=== PATIENT | male | born 1990 | race American Indian/Alaskan Native ===

== ENCOUNTER 2017-03-25 22:08 | Inpatient (IN) | payer MEDICAID ==
--- NOTE | 2017-03-25 22:35 | C.PDOC ---
History Of Present Illness <Pedro Goldstein - Last Filed: 03/25/17 23:18> <Colten Doe - Last Filed: 03/26/17 01:51> 26M c/o depression and suicidal thoughts that began earlier today. he says he was discharged from an inpatient psych hospital this morning and was feeling ok upon discharge. he then began to feel worse later in the day and started feeling suicidal again, he days, without any specific plan. he attempted to OD once in the past with heroin. currently he says he is in treatment and not using drugs or alcohol. (Pedro Goldstein) <Pedro Goldstein - Last Filed: 03/25/17 23:18> <Colten Doe - Last Filed: 03/26/17 01:51> Time Seen by Provider: 03/25/17 22:35 Chief Complaint (Nursing): Psychiatric Evaluation Past Medical History - Medical History PMH: Depression Family History: States: Other Other Family History: nc - Social History Hx Alcohol Use: No Hx Substance Use: Yes (heroine,last use 2 months ago) - Immunization History Hx Tetanus Toxoid Vaccination: No Hx Influenza Vaccination: No Hx Pneumococcal Vaccination: No <Pedro Goldstein - Last Filed: 03/25/17 23:18> Vital Signs: Last Vital Signs Temp 97.9 F 03/25/17 22:20 Pulse 82 03/25/17 22:20 Resp 20 03/25/17 22:20 BP 127/67 03/25/17 22:20 Pulse Ox 98 03/25/17 23:21 Review Of Systems Constitutional: Negative for: Fever Cardiovascular: Negative for: Chest Pain Respiratory: Negative for: Cough, Shortness of Breath Gastrointestinal: Negative for: Nausea, Vomiting Neurological: Negative for: Headache Psych: Positive for: Depression, Suicidal ideation <Pedro Goldstein - Last Filed: 03/25/17 23:18> Physical Exam - Physical Exam Appears: Well, Non-toxic, No Acute Distress Skin: Warm, Dry Head: Atraumatic Eye(s): bilateral: PERRL Nose: No Epistaxis Lips: No Swelling Cardiovascular: Rhythm Regular Respiratory: No Decreased Breath Sounds, No Accessory Muscle Use Gastrointestinal/Abdominal: Soft, No Tenderness Neurological/Psych: Oriented x3, Other (no focla deficits) <Pedro Goldstein P - Last Filed: 03/25/17 23:18> ED Course And Treatment - Laboratory Results Result Diagrams: 03/25/17 22:48 03/25/17 22:48 O2 Sat by Pulse Oximetry: 98 <Pedro Goldstein P - Last Filed: 03/25/17 23:18> - Laboratory Results Result Diagrams: 03/25/17 22:48 03/25/17 22:48 Progress Note: signed over @ 0100- pt pending Crisis eval. 0150: d/w Crisis, ok to Psych <Colten Doe E - Last Filed: 03/26/17 01:51> Disposition <Pedro Goldstein P - Last Filed: 03/25/17 23:18> Doctor Will See Patient In The: Hospital Counseled Patient/Family Regarding: Studies Performed, Diagnosis - Disposition Disposition Time: 01:51 <Colten Doe E - Last Filed: 03/26/17 01:51> - Disposition Disposition: HOSPITALIZED Condition: GOOD Forms: [employer] ([place]) - Clinical Impression Clinical Impression: Opiate abuse, continuous, Alcohol abuse, Depressive disorder
[2017-03-25 22:53] LABS: BASO # 0.2 K/uL (0.0-0.2); BASO % 2.8 % (0.0-2.0); EOS # 0.2 K/uL (0.0-0.7); EOS % 3.4 % (0.0-4.0); HEMATOCRIT 46.1 % (35.0-51.0); LYMPH # 1.2 K/uL (1.0-4.3); LYMPH % 22.1 % (20.0-40.0); MEAN CELL VOLUME 92.3 fL (80.0-94.0); MEAN CORPUSCULAR HEMOGLOBIN 31.2 pg (27.0-31.0); MEAN CORPUSCULAR HGB CONC 33.7 g/dL (33.0-37.0); MEAN PLATELET VOLUME 8.3 fL (7.2-11.7); MONO # 0.7 K/uL (0.0-0.8); MONO % 13.4 % (0.0-10.0); NRBC % 0.1 % (0.0-2.0); RED CELL DISTRIBUTION WIDTH 14.8 % (11.5-14.5); WHITE BLOOD COUNT 5.4 K/uL (4.8-10.8)
[2017-03-25 23:00] LABS: CHLORIDE 101 mmol/L (98-107); POTASSIUM 3.9 mmol/L (3.6-5.2); SODIUM 140 mmol/L (132-148)
[2017-03-25 23:02] LABS: BILIRUBIN,TOTAL 1.2 mg/dL (0.2-1.3); CARBON DIOXIDE 27 mmol/L (22-30); GFR AFRICAN-AMERICAN > 60
[2017-03-25 23:03] LABS: ALB/GLOB RATIO 1.8 (1.0-2.1); ALKALINE PHOSPHATASE 47 U/L (38-126); ALT/SGPT 48 U/L (21-72); AST/SGOT 36 U/L (17-59); BLOOD UREA NITROGEN 18 mg/dL (9-20); CALCIUM 9.1 mg/dl (8.6-10.4); GLUCOSE,RANDOM 83 mg/dL (75-110); TOTAL PROTEIN 7.3 g/dL (6.3-8.3)
[2017-03-25 23:04] LABS: ALCOHOL SERUM < 10 mg/dl (0-10); RBC URINE 1 /hpf (0-3); URINE BACTERIA OCC (<OCC); URINE BILIRUBIN NEGATIVE (NEGATIVE); URINE BLOOD NEGATIVE (NEGATIVE); URINE COLOR Yellow (YELLOW); URINE GLUCOSE (UA) NORMAL (Normal); URINE KETONE TRACE mg/dL (NEGATIVE); URINE LEUKOCYTE ESTERASE NEG Leu/uL (Negative); URINE PROTEIN NEGATIVE (NEGATIVE); WBC URINE 1 /hpf (0-5)
--- NOTE | 2017-03-26 02:30 | PCM.BM ---
<Mami Valadez - Last Filed: 03/26/17 02:28> Treatment Plan Problems - Problems identified on initial assessmt Problem 1 Date Initiated: 03/26/17 (suicidal ideations) Time Initiated: 02:20 Assessment reference: NA Status: Active Priority: 1 Problem 2 Date Initiated: 03/26/17 (depression) Time Initiated: 02:20 Assessment reference: NA Status: Active Priority: 2 Treatment assets and liabiliti Patient Assests: cooperative, self-reliant, ADL independent Patient Liabilities: poor support system, relationship conflicts - Milieu Protocol Maintain good personal hygiene: daily Encourage regular showers, daily Remind patient to perform daily oral care Conduct patient checks and document Observation sheet: Q15 minutes Maintain personal safety: every shift Educate patient to report safety concerns to staff, every shift Monitor environment for contraband/sharps Medication safety: Monitor for expected outcome, potential side effects: every shift, Assess barriers to learning: every shift, Assess readiness for medication education: every shift <Arelis Llnaes - Last Filed: 03/27/17 10:44> - Diagnosis (1) Depressive disorder Status: Acute Interventions: 03/27/17 10:44 * Assess/adjust medications daily and /or as needed * See patient on an individual basis 7x/week to assess level of depressive behaviors and stability * Discuss risks, benefits, side effects and alternatives of medications * <Yessenia Canseco - Last Filed: 03/27/17 10:47> Family Contact Family involvement: Family/SO is involved Family contact: Patient agrees to contact Family contact name: Lane Kathleen-father Family contacted how many times per week?: 2 - Outside Agency Agency 1 Care involvment: Following patient during stay, Information-sharing Agency contact name: [facility] Agency contact number: - Goals for Treatment Patient goals for treatment: "I want to go back to rehab." Discharge/Continuing Care - Education Needs Education Needs: Patient Medication, Patient Coping Skills, Patient Placement options, Patient Community resources - Discharge Discharge Criteria: Tolerates medication w/o severe side effects, Free of Suicidal thoughts, Reduction of target symptoms Discharge to:: Substance Abuse Rehab - Treatment Team Participation Discussed with Family/SO: Yes Was Patient/Family/SO present at Treatment Team Meeting: Yes
--- NOTE | 2017-03-26 09:41 | PCM.PSYCH ---
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 Patient states he spent the last week in a psychiatric hospital at [facility] in [place] for depression, suicidal ideations and heroin use. He was discharged to [facility] for treatment yesterday. However upon leaving the hospital he states he began to feel an overwhelming depression again and that brought him to [facility]. Patient states "stuff in my life" makes him feel depressed. He would not elaborate on the topic. Patient has a prior suicide attempt by intentional IV heroin OD in January of 2017. Patient states he previously used heroin daily but hasn't used since the suicide attempt two months ago. He has been to rehab once prior in [place] for 2 years. He denies prior detoxes. Patient admits to experiencing hopelessness and helplessness denies auditory or visual hallucinations, denies manic symptoms (high energy, feeling of not requiring sleep, flight of ideas), and denies any current drug or alcohol use. Past psych history: Major depressive d/o, recurrent, severe opioid use d/o, severe Past medical history: denies Family history: denies psych or substance use history Current Medications: Active Medications Generic Name Dose Route Start Last Admin Trade Name Freq PRN Reason Stop Dose Admin Benztropine Mesylate 2 mg 03/26/17 01:55 Cogentin PO Q6 PRN Extra Pyramidal Symptoms Bupropion HCl 150 mg 03/26/17 10:00 Wellbutrin Xl PO QAM EVELYNE Dicyclomine HCl 10 mg 03/26/17 01:55 Bentyl PO Q6 PRN Muscle spasm Diphenhydramine HCl 50 mg 03/26/17 01:55 Benadryl PO Q6 PRN Extra Pyramidal Symptoms Folic Acid 1 mg 03/26/17 10:00 Folic Acid PO DAILY EVELYNE Haloperidol 5 mg 03/26/17 01:55 Haldol PO Q8 PRN Moderate Agitation Haloperidol Lactate 5 mg 03/26/17 01:55 Haldol IM Q8 PRN Moderate Agitation Hydroxyzine HCl 25 mg 03/26/17 01:55 Atarax PO Q6 PRN Anxiety Ibuprofen 400 mg 03/26/17 01:55 Motrin Tab PO Q6 PRN Pain, moderate (4-7) Loperamide HCl 2 mg 03/26/17 01:55 Imodium PO Q8 PRN Diarrhea Lorazepam 2 mg 03/26/17 01:55 Ativan PO Q8H PRN Severe Agitation Multivitamins 1 tab 03/26/17 10:00 Hexavitamin PO DAILY EVELYNE Ondansetron HCl 2 mg 03/26/17 01:55 Zofran Tab PO Q8H PRN Nausea/Vomiting Thiamine HCl 100 mg 03/26/17 10:00 Vitamin B1 Tab PO DAILY EVELYNE Trazodone HCl 100 mg 03/26/17 02:24 03/26/17 02:33 Desyrel PO 04/02/17 02:25 100 mg HS PRN Administration Insomnia Past Psychiatric History - Past Psychiatric History Previous Treatment History: Inpatient (see HPI) Pertinent Medical Hx (Current Medical&Sleep Prob, Allergies): Allergies Allergy/AdvReac Type Severity Reaction Status Date / Time No Known Allergies Allergy Verified 03/25/17 22:25 QUEtiapine [SEROquel] 100 mg PO HS 03/25/17 buPROPion XL [Wellbutrin XL] 300 mg PO DAILY 03/25/17 Review of Systems - Review of Systems All systems: reviewed and no additional remarkable complaints except - Psychiatric Psychiatric: Abnormal Sleep Pattern, Anhedonia, Depression, Difficulty Concentrating, Hopelessness, Suicidal Ideation. absent: Auditory Hallucinations , Hallucinations, Panic Attacks, Visual Hallucinations Mental Status Examination - Personal Presentation Personal Presentation: Looks stated age - Affect Affect: Constricted, Depressed - Motor Activity Motor Activity: Calm - Reliability in Providing Information Reliability in Providing Information: Fair - Speech Speech: Organized - Mood Mood: Depressed, Anxious - Formal Thought Process Formal Thought Process: No Impairment - Obsessions/Compulsions Obsessions: No Compulsions: No - Cognitive Functions Orientation: Person, Place, Situation, Time Sensorium: Alert Attention/Concentration: Attentive Abstract Thinking: [place] Estimate of Intelligence: Below average Judgement: Imparied, as evidence by: Poor judgement, Imparied, as evidence by: Lack of insight into illness Memory: Recent intact, as evidence by: Ability to recall events of the day, Remote intact, as evidenced by: Abilit to recall sig. life events - Risk Risk: Suicidal, Diminished functioning - Strength & Assets Inventory Strength & Assets Inventory: Cooperative - Limitations Limitations: Living alone DSM 5 DX - DSM 5 DSM 5 Diagnosis: Major depressive d/o, recurrent, severe w/o psychotic features Opioid use d/o, severe - Recommended/Plan of Treatment Treatment Recommendations and Plan of Treatment: Major depressive d/o, recurrent, severe w/o psychotic features Opioid use d/o, severe Bupropion 150 mg Trazodone 100 mg Attend groups and activities Individual therapy Psychoeducation and support Encourage compliance with meds and after care Refer to outpatient program Teach healthy lifestyle methods, i.e. diet, exercise, meditation Projected ELOS: 6-7 days Prognosis: good with treatment - Smoking Cessation Smoking Cessation Initiated: No
[2017-03-26] MEDS: buPROPion 150 mg/24 Hours XL Tab PO SCH (09:53)
[2017-03-26] MEDS: Multiple Vitamins Tab PO SCH (09:53)
[2017-03-27] MEDS: Multiple Vitamins Tab PO SCH (09:51)
[2017-03-27] MEDS: buPROPion 150 mg/24 Hours XL Tab PO SCH (09:51)
--- NOTE | 2017-03-27 10:44 | PCM.PYCHPN ---
Psychiatric Progress Note - Psychiatric Progress Note Patient seen today, length of contact: 15 min Patient Chief Complaint: "I am depressed." Problems Identified/Issues Discussed: Patient seen and evaluated, chart reviewed and discussed with the nurse. As per the staff, patient still appears isolated, depressed and withdrawn. Patient still reports depressed mood and reports at times feelings of hopelessness or helplessness. He denies any auditory or visual hallucinations or any psychotic symptoms. He is taking meds but denies any side effects. He needs more time for stabilization. Supportive therapy and psychoeducation were given. Medication Change: No Medical Record Reviewed: Yes Mental Status Examination - Cognitive Function Orientation: Person, Place, Situation, Time Memory: Intact Attention: WNL Concentration: Poor Association: WNL Fund of Knowledge: Poor - Mood Mood: Depressed, Anxious - Affect Affect: Constricted, Depressed - Speech Speech: Soft - Formal Thought Process Formal Thought Process: No Impairment - Suicidal Ideation Suicidal Ideation: No - Homicidal Ideation Homicidal Ideation: No Goal/Treatment Plan - Goal/Treatment Plan Need for Continued Stay: Discharge may exacerbated symptoms, Severe functional impairment Progress Toward Problem(s) and Goals/Treatment Plan: Major depressive d/o, recurrent, severe w/o psychotic features Opioid use d/o, severe Bupropion 150 mg Trazodone 100 mg Attend groups and activities Individual therapy Psychoeducation and support Encourage compliance with meds and after care Refer to outpatient program Teach healthy lifestyle methods, i.e. diet, exercise, meditation - Smoking Cessation Smoking Cessation Initiated: No
[2017-03-27] MEDS ORDERED: Vitamins A & D Oint UD Foilpak TOP PRN (19:00)
--- NOTE | 2017-03-28 09:33 | PCM.PYCHPN ---
Psychiatric Progress Note - Psychiatric Progress Note Patient seen today, length of contact: 15 min Patient Chief Complaint: "I am depressed." Problems Identified/Issues Discussed: Patient seen and evaluated, chart reviewed and discussed with the nurse. As per the staff, patient still appears isolated, depressed and withdrawn. Patient still reports depressed mood and reports at times feelings of hopelessness or helplessness. He denies any auditory or visual hallucinations or any psychotic symptoms. He is taking meds but denies any side effects. He needs more time for stabilization. Supportive therapy and psychoeducation were given. Medication Change: Yes (increase bupropion) Medical Record Reviewed: Yes Mental Status Examination - Cognitive Function Orientation: Person, Place, Situation, Time Memory: Intact Attention: WNL Concentration: Poor Association: WNL Fund of Knowledge: Poor - Mood Mood: Depressed, Anxious - Affect Affect: Constricted, Depressed - Speech Speech: Soft - Formal Thought Process Formal Thought Process: No Impairment - Suicidal Ideation Suicidal Ideation: No - Homicidal Ideation Homicidal Ideation: No Goal/Treatment Plan - Goal/Treatment Plan Need for Continued Stay: Discharge may exacerbated symptoms, Severe functional impairment Progress Toward Problem(s) and Goals/Treatment Plan: Major depressive d/o, recurrent, severe w/o psychotic features Opioid use d/o, severe Bupropion 300 mg Trazodone 100 mg Attend groups and activities Individual therapy Psychoeducation and support Encourage compliance with meds and after care Refer to outpatient program Teach healthy lifestyle methods, i.e. diet, exercise, meditation
[2017-03-28] MEDS: buPROPion 150 mg/24 Hours XL Tab PO SCH (09:56)
[2017-03-28] MEDS: Multiple Vitamins Tab PO SCH (09:56)
[2017-03-29] MEDS: Multiple Vitamins Tab PO SCH (10:07)
[2017-03-29] MEDS: buPROPion 150 mg/24 Hours XL Tab PO SCH (10:07)
[2017-03-30 07:54] VITALS: O2SAT 99
[2017-03-30] MEDS: Multiple Vitamins Tab PO SCH (09:34)
[2017-03-30] MEDS: buPROPion 150 mg/24 Hours XL Tab PO SCH (09:34)
[2017-03-31] MEDS: buPROPion 150 mg/24 Hours XL Tab PO SCH (09:16)
[2017-03-31] MEDS: Multiple Vitamins Tab PO SCH (09:16)
[2017-04-01 07:00] VITALS: RESP 20
[2017-04-01] MEDS: buPROPion 150 mg/24 Hours XL Tab PO SCH (10:13)
[2017-04-01] MEDS: Multiple Vitamins Tab PO SCH (10:13)
--- NOTE | 2017-04-01 11:11 | PCM.PYCHPN ---
Psychiatric Progress Note - Psychiatric Progress Note Patient seen today, length of contact: 15 min Patient Chief Complaint: "I am feeling better." Problems Identified/Issues Discussed: Patient seen and evaluated, chart reviewed and discussed with the nurse. Patient reports improvement in his mood and reports improvement in the anxiety symptoms. He denies any auditory or visual hallucinations. He remained calm and cooperative. He denies any feelings of hopelessness and helplessness. He is taking medication and denies any side effects. He needs more time for stabilization. Supportive therapy and psychoeducation were given. Medication Change: Yes (increase bupropion) Medical Record Reviewed: Yes Mental Status Examination - Cognitive Function Orientation: Person, Place, Situation, Time Memory: Intact Attention: WNL Concentration: WNL Association: WNL Fund of Knowledge: Poor - Mood Mood: Anxious - Affect Affect: Constricted - Speech Speech: Soft - Formal Thought Process Formal Thought Process: No Impairment - Suicidal Ideation Suicidal Ideation: No - Homicidal Ideation Homicidal Ideation: No Goal/Treatment Plan - Goal/Treatment Plan Need for Continued Stay: Discharge may exacerbated symptoms, Severe functional impairment Progress Toward Problem(s) and Goals/Treatment Plan: Major depressive d/o, recurrent, severe w/o psychotic features Opioid use d/o, severe Bupropion 300 mg Trazodone 100 mg Attend groups and activities Individual therapy Psychoeducation and support Encourage compliance with meds and after care Refer to outpatient program Teach healthy lifestyle methods, i.e. diet, exercise, meditation - Smoking Cessation Smoking Cessation Initiated: No
--- NOTE | 2017-04-01 20:39 | CP.PCM.CON ---
<Fabián Lozano - Last Filed: 04/02/17 01:25> History of Present Illness - History of Present Illness History of Present Illness: Consult reason: Penile sore HPI: Patient is a 26 year old male, with PMHx of major depressive disorder with psychotic features, and opioid use disorder, who presents on the psychiatric floor complaining of sore on his penis. Patient reports he first noticed the sore on the base of his penis "four months ago." He states it has not changed over the four months in size, and has remained painless except when it "brushed up hard against his underwear." He denies discharge from the head of the penis, but admits he squeezed the sore yesterday and noticed some "white fluid" come out. He further denies having similar symptoms in the past, as well as fever, chills, abdominal pain, N/V, burning during urination, urinary frequency, testicular pain. Patient admits he has sex with women only, and estimates having had 10 lifetime sexual partners. He states he has had "one sexual partner over the past year," with unprotected sex occurring with this female partner for last time in December. He states he does not know her STD history, but "she never complained of any symptoms while we were together." He denies high risk sexual behavior like orgies, or group sex. He denies history of STD. He admits history of IVDA, using heroin 1 bundle per day for the last five years. He denies sharing needles with other users. PMHx: major depressive disorder with psychotic features, and opioid use disorder PSHx: wisdom teeth extraction (14 years of age) Fam Hx: denies SHx: tobacco - 1ppd x 5 yrs, EtOH: 1 liter of vodka daily, Marijuana - 2 joints daily; Heroin - 1 bundle a day x 5 yrs Allergies: NKA; specifically denied any allergy to penicillin family of antibiotics PMD: none Review of Systems - Constitutional Constitutional: absent: Chills, Fatigue, Fever - EENT Eyes: absent: Change in Vision Ears: absent: Decreased Hearing - Cardiovascular Cardiovascular: absent: Chest Pain, Dyspnea - Respiratory Respiratory: absent: Dyspnea, Dyspnea on Exertion, Wheezing - Gastrointestinal Gastrointestinal: absent: Abdominal Pain, Nausea, Vomiting - Genitourinary Genitourinary: absent: Change in Urinary Stream, Difficulty Urinating, Dysuria, Flank Pain, Hematuria, Urinary Incontinence, Urinary Frequency, Freq UTI - Reproductive: Male Reproductive:Male: Genital Lesions (base of penis) Additional comments: Pt denies penile discharge, testicular tenderness - Musculoskeletal Musculoskeletal: absent: Back Pain, Numbness, Tingling - Integumentary Integumentary: Lesions (base of penis). absent: Dry Skin Additional comments: No rash on palms or soles - Neurological Neurological: absent: Confusion, Numbness, Tingling, Weakness - Psychiatric Psychiatric: absent: Anxiety, Depression - Endocrine Endocrine: absent: Change in Libido, Fatigue Past Patient History - Infectious Disease Hx of Infectious Diseases: None - Past Social History Smoking Status: Heavy Smoker > 10 Cigarettes Daily - CARDIAC Hx Cardiac Disorders: No Hx Hypertension: No - PULMONARY Hx Tuberculosis: No - NEUROLOGICAL HX Cerebrovascular Accident: No Hx Seizures: No - HEENT Hx HEENT Problems: No - RENAL Hx Chronic Kidney Disease: No - ENDOCRINE/METABOLIC Hx Endocrine Disorders: No - HEMATOLOGICAL/ONCOLOGICAL Hx Cancer: No Hx Human Immunodeficiency Virus (HIV): No - INTEGUMENTARY Hx Dermatological Problems: No - MUSCULOSKELETAL/RHEUMATOLOGICAL Hx Musculoskeletal Disorders: No - GASTROINTESTINAL Hx Gastrointestinal Disorders: No - GENITOURINARY/GYNECOLOGICAL Hx Sexually Transmitted Disorders: No - PSYCHIATRIC Hx Substance Use: Yes - SURGICAL HISTORY Hx Surgeries: No - ANESTHESIA Hx Anesthesia: No Meds Allergies/Adverse Reactions: Allergies Allergy/AdvReac Type Severity Reaction Status Date / Time No Known Allergies Allergy Verified 03/25/17 22:25 - Medications Medications: Current Medications Benztropine Mesylate (Cogentin) 2 mg PO Q6 PRN PRN Reason: Extra Pyramidal Symptoms Bupropion HCl (Wellbutrin Xl) 300 mg PO QAM [facility] Last Admin: 04/01/17 10:13 Dose: 300 mg Dicyclomine HCl (Bentyl) 10 mg PO Q6 PRN PRN Reason: Muscle spasm Diphenhydramine HCl (Benadryl) 50 mg PO Q6 PRN PRN Reason: Extra Pyramidal Symptoms Folic Acid (Folic Acid) 1 mg PO DAILY [facility] Last Admin: 04/01/17 10:13 Dose: 1 mg Haloperidol (Haldol) 5 mg PO Q8 PRN PRN Reason: Moderate Agitation Hydroxyzine HCl (Atarax) 25 mg PO Q6 PRN PRN Reason: Anxiety Ibuprofen (Motrin Tab) 400 mg PO Q6 PRN PRN Reason: Pain, moderate (4-7) Loperamide HCl (Imodium) 2 mg PO Q8 PRN PRN Reason: Diarrhea Multivitamins (Hexavitamin) 1 tab PO DAILY [facility] Last Admin: 04/01/17 10:13 Dose: 1 tab Ondansetron HCl (Zofran Tab) 2 mg PO Q8H PRN PRN Reason: Nausea/Vomiting Thiamine HCl (Vitamin B1 Tab) 100 mg PO DAILY [facility] Last Admin: 04/01/17 10:13 Dose: 100 mg Trazodone HCl (Desyrel) 100 mg PO HS PRN PRN Reason: Insomnia Stop: 04/02/17 02:25 Last Admin: 03/31/17 21:33 Dose: 100 mg Vitamin A (Vitamin A & D Oint Ud Foilpak) 0.5 ea TOP Q6H PRN PRN Reason: Chapped lips Physical Exam - Constitutional Appears: Non-toxic, No Acute Distress - Head Exam Head Exam: ATRAUMATIC, NORMOCEPHALIC - Eye Exam Eye Exam: EOMI, Normal appearance. absent: Scleral icterus - ENT Exam ENT Exam: Mucous Membranes Moist - Neck Exam Neck exam: Positive for: Normal Inspection. Negative for: Lymphadenopathy, Tenderness - Respiratory Exam Respiratory Exam: Clear to Auscultation Bilateral, NORMAL BREATHING PATTERN. absent: Rales, Rhonchi, Wheezes - Cardiovascular Exam Cardiovascular Exam: REGULAR RHYTHM, +S1, +S2 - GI/Abdominal Exam GI & Abdominal Exam: Normal Bowel Sounds, Soft. 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 Negative for: calf tenderness, pedal edema, tenderness - Back Exam Back exam: absent: CVA tenderness (L), CVA tenderness (R) - Neurological Exam Neurological exam: Alert, CN II-XII Intact, Oriented x3 - Psychiatric Exam Psychiatric exam: Normal Affect, Normal Mood - Skin Skin Exam: Normal Color, Warm Additional comments: No rash on palms/soles Results - Vital Signs Recent Vital Signs: Last Vital Signs Temp 98.0 F 04/01/17 06:59 Pulse 89 04/01/17 15:45 Resp 20 04/01/17 06:59 BP 104/72 04/01/17 15:45 Pulse Ox 99 03/31/17 09:11 - Labs Result Diagrams: 03/25/17 22:48 03/25/17 22:48 Assessment & Plan - Assessment and Plan (Free Text) Plan: Syphilis - primary chancre Chancre at base of penis, unchanged/painless x 4 months; no discharge from head of penis Patient admits unprotected sex with one recent partner No rash, no neuro deficits appreciated Pt afebrile over course f/u STD panel - f/u HIV, Herpes, Hep Panel, FTA-Abs, RPR, Chlamydia RNA, Gonorrhea f/u urine culture UA (03/25/17): occasional bacteria - repeat UA: (04/01/17): WNL Hx of IVDA Heroin IV use x 5 years f/u ECHO Major depressive Disorder w. psychotic features Management per Psych team Buproprion 300mg QAM Haldol 5mg PO Q8H History of alcohol abuse Management per Psych team FA/MV/Thiamine PO Opioid use disorder, severe Management per psych team Fabián Lozano, PGY-2 Discussed with mukesh Fagan <Barry Mccartney - Last Filed: 04/02/17 06:28> Meds - Medications Medications: Current Medications Benztropine Mesylate (Cogentin) 2 mg PO Q6 PRN PRN Reason: Extra Pyramidal Symptoms Bupropion HCl (Wellbutrin Xl) 300 mg PO QAM [facility] Last Admin: 04/01/17 10:13 Dose: 300 mg Dicyclomine HCl (Bentyl) 10 mg PO Q6 PRN PRN Reason: Muscle spasm Diphenhydramine HCl (Benadryl) 50 mg PO Q6 PRN PRN Reason: Extra Pyramidal Symptoms Folic Acid (Folic Acid) 1 mg PO DAILY [facility] Last Admin: 04/01/17 10:13 Dose: 1 mg Haloperidol (Haldol) 5 mg PO Q8 PRN PRN Reason: Moderate Agitation Hydroxyzine HCl (Atarax) 25 mg PO Q6 PRN PRN Reason: Anxiety Ibuprofen (Motrin Tab) 400 mg PO Q6 PRN PRN Reason: Pain, moderate (4-7) Loperamide HCl (Imodium) 2 mg PO Q8 PRN PRN Reason: Diarrhea Multivitamins (Hexavitamin) 1 tab PO DAILY [facility] Last Admin: 04/01/17 10:13 Dose: 1 tab Ondansetron HCl (Zofran Tab) 2 mg PO Q8H PRN PRN Reason: Nausea/Vomiting Thiamine HCl (Vitamin B1 Tab) 100 mg PO DAILY [facility] Last Admin: 04/01/17 10:13 Dose: 100 mg Vitamin A (Vitamin A & D Oint Ud Foilpak) 0.5 ea TOP Q6H PRN PRN Reason: Chapped lips Results - Vital Signs Recent Vital Signs: Last Vital Signs Temp 98.0 F 04/01/17 06:59 Pulse 89 04/01/17 15:45 Resp 20 04/01/17 06:59 BP 104/72 04/01/17 15:45 Pulse Ox 99 03/31/17 09:11 - Labs Result Diagrams: 03/25/17 22:48 03/25/17 22:48 Labs: Laboratory Results - last 24 hr 04/01/17 21:33 Urine Color Yellow Urine Clarity Clear Urine pH 5.0 Ur Specific [place] 1.030 Urine Protein Negative Urine Glucose (UA) Normal Urine Ketones Negative Urine Blood Negative Urine Nitrate Negative Urine Bilirubin Negative Urine Urobilinogen Normal Ur Leukocyte Esterase Neg Urine WBC (Auto) < 1 Urine RBC (Auto) < 1 Assessment & Plan - Date & Time Date: 04/02/17 (I have seen and examined the patient. I agree with the findings and plan of care as documented by Dr. Lozano. Medicine consulted due to penile sore. Appears to be indicative of syphillis. Check for other STDs. Begin Pen G treatment. Also with history of IVDA. Check 2D Echo. Monitor for acute changes.) Time: 06:26 Attending/Attestation - Attestation I have personally seen and examined this patient.: Yes I have fully participated in the care of the patient.: Yes I have reviewed all pertinent clinical information: Yes
[2017-04-01] MEDS ORDERED: Penicillin G Benzathine 2.4 Mill Unit/4 ml Syr IM ONE (21:30)
[2017-04-01 21:51] LABS: RBC URINE < 1 /hpf (0-3); URINE BILIRUBIN NEGATIVE (NEGATIVE); URINE BLOOD NEGATIVE (NEGATIVE); URINE COLOR Yellow (YELLOW); URINE GLUCOSE (UA) NORMAL (Normal); URINE KETONE NEGATIVE (NEGATIVE); URINE LEUKOCYTE ESTERASE NEG Leu/uL (Negative); URINE PROTEIN NEGATIVE (NEGATIVE); URINE UROBILINOGEN NORMAL mg/dL (0.2-1.0); WBC URINE < 1 /hpf (0-5)
[2017-04-02 07:41] LABS: BASO % 0.8 % (0.0-2.0); EOS # 0.1 K/uL (0.0-0.7); EOS % 4.2 % (0.0-4.0); HEMATOCRIT 46.6 % (35.0-51.0); LYMPH # 1.3 K/uL (1.0-4.3); LYMPH % 45.8 % (20.0-40.0); MEAN CELL VOLUME 92.5 fL (80.0-94.0); MEAN CORPUSCULAR HEMOGLOBIN 30.7 pg (27.0-31.0); MEAN CORPUSCULAR HGB CONC 33.2 g/dL (33.0-37.0); MEAN PLATELET VOLUME 8.6 fL (7.2-11.7); MONO # 0.4 K/uL (0.0-0.8); MONO % 15.1 % (0.0-10.0); NRBC % 0.1 % (0.0-2.0); RED CELL DISTRIBUTION WIDTH 14.8 % (11.5-14.5); WHITE BLOOD COUNT 2.8 K/uL (4.8-10.8)
[2017-04-02 07:47] VITALS: BP 118/77; PULSE 75; TEMP 98.2
[2017-04-02 08:07] LABS: CHLORIDE 97 mmol/L (98-107); SODIUM 138 mmol/L (132-148)
[2017-04-02 08:09] LABS: ALB/GLOB RATIO 1.8 (1.0-2.1); AST/SGOT 26 U/L (17-59); CARBON DIOXIDE 32 mmol/L (22-30); GFR AFRICAN-AMERICAN > 60; TOTAL PROTEIN 6.8 g/dL (6.3-8.3)
[2017-04-02 08:10] LABS: ALKALINE PHOSPHATASE 44 U/L (38-126); ALT/SGPT 41 U/L (21-72); BLOOD UREA NITROGEN 15 mg/dL (9-20); CALCIUM 8.9 mg/dl (8.6-10.4); GLUCOSE,RANDOM 82 mg/dL (75-110)
--- NOTE | 2017-04-02 08:28 | CP.PCM.PN ---
<Omar Le - Last Filed: 04/02/17 12:25> Subjective - Date & Time of Evaluation Date of Evaluation: 04/02/17 Time of Evaluation: 08:26 - Subjective Subjective: PGY-[address] Suh. No acute events overnight noted. Patient seen and examined in psych [facility] this AM. He denied any symptoms. The lesion on his penis is stable, hasn't had any discharge. He denies fever, chills, nausea, vomiting, penile pain or discharge. Objective - Vital Signs/Intake and Output Vital Signs (last 24 hours): Temp Pulse Resp BP Pulse Ox 98.2 F 75 20 118/77 99 04/02/17 07:46 04/02/17 07:46 04/02/17 07:46 04/02/17 07:46 03/31/17 09:11 - Medications Medications: Current Medications Benztropine Mesylate (Cogentin) 2 mg PO Q6 PRN PRN Reason: Extra Pyramidal Symptoms Bupropion HCl (Wellbutrin Xl) 300 mg PO QAM [facility] Last Admin: 04/01/17 10:13 Dose: 300 mg Dicyclomine HCl (Bentyl) 10 mg PO Q6 PRN PRN Reason: Muscle spasm Diphenhydramine HCl (Benadryl) 50 mg PO Q6 PRN PRN Reason: Extra Pyramidal Symptoms Folic Acid (Folic Acid) 1 mg PO DAILY [facility] Last Admin: 04/01/17 10:13 Dose: 1 mg Haloperidol (Haldol) 5 mg PO Q8 PRN PRN Reason: Moderate Agitation Hydroxyzine HCl (Atarax) 25 mg PO Q6 PRN PRN Reason: Anxiety Ibuprofen (Motrin Tab) 400 mg PO Q6 PRN PRN Reason: Pain, moderate (4-7) Loperamide HCl (Imodium) 2 mg PO Q8 PRN PRN Reason: Diarrhea Multivitamins (Hexavitamin) 1 tab PO DAILY [facility] Last Admin: 04/01/17 10:13 Dose: 1 tab Ondansetron HCl (Zofran Tab) 2 mg PO Q8H PRN PRN Reason: Nausea/Vomiting Thiamine HCl (Vitamin B1 Tab) 100 mg PO DAILY [facility] Last Admin: 04/01/17 10:13 Dose: 100 mg Vitamin A (Vitamin A & D Oint Ud Foilpak) 0.5 ea TOP Q6H PRN PRN Reason: Chapped lips - Labs Labs: 04/02/17 07:20 04/02/17 07:20 - Additional Findings Additional findings: - Constitutional Appears: Non-toxic, No Acute Distress - Head Exam Head Exam: ATRAUMATIC, NORMOCEPHALIC - Eye Exam Eye Exam: EOMI, Normal appearance. absent: Scleral icterus - ENT Exam ENT Exam: Mucous Membranes Moist - Neck Exam Neck exam: Positive for: Normal Inspection. Negative for: Lymphadenopathy, Tenderness - Respiratory Exam Respiratory Exam: Clear to Auscultation Bilateral, NORMAL BREATHING PATTERN. absent: Rales, Rhonchi, Wheezes - Cardiovascular Exam Cardiovascular Exam: REGULAR RHYTHM, +S1, +S2 - GI/Abdominal Exam GI & Abdominal Exam: Normal Bowel Sounds, Soft. absent: Tenderness - Exam Exam: absent: Circumcision, NORMAL INSPECTION, Scrotal Swelling, Uretheral Discharge External exam: Lesions (base of penis) Additional comments: Regional Liaison in room at physician request Chancre at base of penis ~1cm x 1cm - sunken with erythema base - No discharge expressed when squeezed - Non-tender to palpation No discharge from head of penis - Extremities Exam Extremities exam: Positive for: normal inspection. Negative for: calf tenderness, pedal edema, tenderness - Back Exam Back exam: absent: CVA tenderness (L), CVA tenderness (R) - Neurological Exam Neurological exam: Alert, CN II-XII Intact, Oriented x3 - Psychiatric Exam Psychiatric exam: Normal Affect, Normal Mood - Skin Skin Exam: Normal Color, Warm Additional comments: No rash on palms/soles Assessment and Plan - Assessment and Plan (Free Text) Assessment: 04/02: Per psych, patient will be discharged today. He was given penicillin G Benzathine for treatment for his chancre. He was told to follow-up at [facility] in 2 weeks so he may see the results for the various tests that were done by medicine. Syphilis - primary chancre Chancre at base of penis, unchanged/painless x 4 months; no discharge from head of penis Patient admits unprotected sex with one recent partner No rash, no neuro deficits appreciated Pt afebrile over course Hepatitis Panel negative HIV 1&2 Ab screen negative f/u STD panel - f/u Herpes, FTA-Abs, RPR, Chlamydia RNA, Gonorrhea f/u urine culture UA (03/25/17): occasional bacteria - repeat UA: (04/01/17): WNL Hx of IVDA Heroin IV use x 5 years f/u ECHO Major depressive Disorder w. psychotic features Management per Psych team Buproprion 300mg QAM Haldol 5mg PO Q8H History of alcohol abuse Management per Psych team FA/MV/Thiamine PO Opioid use disorder, severe Management per psych team <Song Suh H - Last Filed: 04/02/17 14:11> Objective - Vital Signs/Intake and Output Vital Signs (last 24 hours): Temp Pulse Resp BP Pulse Ox 98.2 F 75 20 118/77 99 04/02/17 07:46 04/02/17 07:46 04/02/17 07:46 04/02/17 07:46 03/31/17 09:11 - Labs Labs: 04/02/17 07:20 04/02/17 07:20 Attending/Attestation - Attestation I have personally seen and examined this patient.: Yes I have fully participated in the care of the patient.: Yes I have reviewed all pertinent clinical information, including history, physical exam and plan: Yes Notes (Text): 04/02/17 14:09 Medical Attending: Patient was seen and examined by me. Not all labwork from last night has resulted as of yet. He did get a IM shot of Penicillin G last night. He reported no penile pain, denied dysuria. He is pending DC by psychiatry later today. The patient was encouraged to follow up in the [facility] clinic for further results. thank you Song Suh
[2017-04-02] MEDS: Multiple Vitamins Tab PO SCH (09:54)
[2017-04-02] MEDS: buPROPion 150 mg/24 Hours XL Tab PO SCH (09:54)
--- NOTE | 2017-04-02 10:54 | PCM.PYCHDC ---
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 Patient states he spent the last week in a psychiatric hospital at [facility] in [place] for depression, suicidal ideations and heroin use. He was discharged to [facility] for treatment yesterday. However upon leaving the hospital he states he began to feel an overwhelming depression again and that brought him to [facility]. Patient states "stuff in my life" makes him feel depressed. He would not elaborate on the topic. Patient has a prior suicide attempt by intentional IV heroin OD in January of 2017. Patient states he previously used heroin daily but hasn't used since the suicide attempt two months ago. He has been to rehab once prior in [place] for 2 years. He denies prior detoxes. Patient admits to experiencing hopelessness and helplessness denies auditory or visual hallucinations, denies manic symptoms (high energy, feeling of not requiring sleep, flight of ideas), and denies any current drug or alcohol use. Laboratory Data: Abnormal Lab Results 04/01/17 04/02/17 04/02/17 21:33 07:20 07:20 WBC 2.8 L RBC 5.04 Hgb 15.5 Hct 46.6 MCV 92.5 MCH 30.7 MCHC 33.2 RDW 14.8 H Plt Count 205 MPV 8.6 Neut % (Auto) 34.1 L Lymph % (Auto) 45.8 H [place] % (Auto) 15.1 H Eos % (Auto) 4.2 H Baso % (Auto) 0.8 Neut # 1.0 L Lymph # 1.3 [place] # 0.4 Eos # 0.1 Baso # 0.0 Sodium 138 Potassium 4.0 Chloride 97 L Carbon Dioxide 32 H Anion Gap 13 BUN 15 Creatinine 0.9 Est GFR ( Amer) > 60 Est GFR (Non-Af Amer) > 60 Random Glucose 82 Calcium 8.9 Total Bilirubin 1.0 AST 26 ALT 41 Alkaline Phosphatase 44 Total Protein 6.8 Albumin 4.3 Globulin 2.5 Albumin/Globulin Ratio 1.8 Urine Color Yellow Urine Clarity Clear Urine pH 5.0 Ur Specific [place] 1.030 Urine Protein Negative Urine Glucose (UA) Normal Urine Ketones Negative Urine Blood Negative Urine Nitrate Negative Urine Bilirubin Negative Urine Urobilinogen Normal Ur Leukocyte Esterase Neg Urine WBC (Auto) < 1 Urine RBC (Auto) < 1 Hepatitis A IgM Ab Hep Bs Antigen Hep Bs Antibody Hep B Core IgM Ab Hepatitis C Antibody HIV 1&2 Antibody Screen 04/02/17 04/02/17 04/02/17 07:55 07:55 08:00 WBC RBC Hgb Hct MCV MCH MCHC RDW Plt Count MPV Neut % (Auto) Lymph % (Auto) [place] % (Auto) Eos % (Auto) Baso % (Auto) Neut # Lymph # [place] # Eos # Baso # Sodium Potassium Chloride Carbon Dioxide Anion Gap BUN Creatinine Est GFR ( Amer) Est GFR (Non-Af Amer) Random Glucose Calcium Total Bilirubin AST ALT Alkaline Phosphatase Total Protein Albumin Globulin Albumin/Globulin Ratio Urine Color Urine Clarity Urine pH Ur Specific [place] Urine Protein Urine Glucose (UA) Urine Ketones Urine Blood Urine Nitrate Urine Bilirubin Urine Urobilinogen Ur Leukocyte Esterase Urine WBC (Auto) Urine RBC (Auto) Hepatitis A IgM Ab Negative Hep Bs Antigen Negative Hep Bs Antibody Positive Hep B Core IgM Ab Negative Hepatitis C Antibody Negative HIV 1&2 Antibody Screen Negative Consultations:: List each consultation separately and include: 1. Reason for request. 2. Findings. 3. Follow-up Summary of Hospital Course include:: 1. Description of specific treatment plan utilized for patients during their course of treatmen. 2. Summarize the time- course for resolution of acute symptoms and/or regressed behaviors. 3. Describe issues identified and worked on during hospitalization. 4. Describe medication utilized. 5. Describe medical problems identified and treated. 6. Reassessment of suicide risk Summary of Hospital Course: During the course of his stay, patient (pt) started progressively improving and he no longer remained irritable, depressed, suicidal and agitated. His mood and withdrawal symptoms were improved and he started attending groups and meetings and started socializing. Patient denied any feelings of hopelessness, helplessness, and worthlessness, denied any problem with the sleep or appetite, denied suicidal ideation or homicidal ideation. Pt denied any auditory or visual hallucinations. Some changes were made in his current medications and patient was discharged on following medications. He tolerated these medications very well and denied any side effects. - Diagnosis (1) Depressive disorder Status: Acute - Final Diagnosis (DSM 5) Condition upon Discharge: GOOD DSM 5: Major depressive d/o, recurrent, severe w/o psychotic features Opioid use d/o, severe Disposition: HOME/ ROUTINE Follow-up Treatment Plan: Education: Pt was educated and counseled about the risks and benefits of taking and not taking medications. Pt was educated and counseled about the risks of drinking and abusing drugs. Pt was educated and counseled to go to the ER or call 911 if pt develop suicidal ideation or homicidal ideation, worsening of symptoms or severe side effects of the meds. Prescriptions/Medication Reconciliation: buPROPion XL [Wellbutrin XL] 300 mg PO QAM #30 t24 traZODone [Desyrel] 100 mg PO HS PRN #30 tab PRN Reason: Insomnia - Smoking Cessation Smoking Cessation Medication prescribed: No - Antipsychotic Medications Pt discharged on 2 or more routine antipsychotic medications: No
--- NOTE | 2017-04-02 13:00 | CARD ---
APPROVED REPORT EXAM: Two-dimensional and M-mode echocardiogram with Doppler and color Doppler. Other Information Quality : GoodRhythm : INDICATION HX OF IVDA, M-Mode DIMENSIONS RVDd1.47 (2.1-3.2cm)Left Atrium (MM)2.28 (2.5-4.0cm) IVSd0.82 (0.7-1.1cm)Aortic Root3.30 (2.2-3.7cm) LVDd4.43 (4.0-5.6cm)Aortic Cusp Exc.2.57 (1.5-2.0cm) PWd0.82 (0.7-1.1cm)FS (%) 25 % LVDs3.33 (2.0-3.8cm)LVEF (%)49 (>50%) Mitral Valve MV E Gjgnuaod56.2cm/sMV A Vafpmaul74.3cm/sE/A ratio1.2 TDI E/Lateral E'0.0E/Medial E'0.0 Tricuspid Valve TR Peak [id number]/sTR Peak Gr.[id number] LEFT VENTRICLE The left ventricle is normal size. There is normal left ventricular wall thickness. The left ventricular function is normal. The left ventricular ejection fraction is within the normal range. There is normal LV segmental wall motion. The left ventricular diastolic function is normal. No left ventricle thrombus noted on this study. There is no ventricular septal defect visualized. There is no left ventricular aneurysm. There is no mass noted in the left ventricle. RIGHT VENTRICLE The right ventricle is normal size. There is normal right ventricular wall thickness. The right ventricular systolic function is normal. ATRIA The left atrium size is normal. The right atrium size is normal. AORTIC VALVE The aortic valve is normal in structure. No aortic regurgitation is present. There is no aortic valvular stenosis. There is no aortic valvular vegetation. MITRAL VALVE The mitral valve is normal in structure. There is no mitral valve stenosis. There is no mitral valve regurgitation noted. TRICUSPID VALVE The tricuspid valve is normal in structure. There is no tricuspid valve regurgitation noted. PULMONIC VALVE The pulmonary valve is normal in structure. There is mild pulmonic valvular regurgitation. GREAT VESSELS The aortic root is normal in size. The ascending aorta is normal in size. The pulmonary artery is normal. The IVC is normal in size and collapses >50% with inspiration. PERICARDIAL EFFUSION There is no pericardial effusion. <Conclusion> There is mild pulmonic valvular regurgitation. LVEF IS 60%.
== END 2017-04-02 12:00 | disposition home or self-care (01) | DRG 430 ==
LOC: C.ER 22:08 → C.5E 03-26 01:49
PROVIDERS: ADMIT Psychiatry & Neurology Psychiatry; ATTEND Psychiatry & Neurology Psychiatry
PROC: GZHZZZZ Group Psychotherapy (ICD-10-PCS; principal; 2017-03-27)
PROC: GZ58ZZZ Individual Psychotherapy, Cognitive-Behavioral (ICD-10-PCS; 2017-03-27)
PROC: GZ56ZZZ Individual Psychotherapy, Supportive (ICD-10-PCS; 2017-03-27)
DX: F33.2 Major depressive disorder, recurrent severe without psychotic features (principal); R45.851 Suicidal ideations; F11.10 Opioid abuse, uncomplicated; A51.0 Primary genital syphilis; F10.10 Alcohol abuse, uncomplicated; Z79.899 Other long term (current) drug therapy; F17.210 Nicotine dependence, cigarettes, uncomplicated; Z91.5 Personal history of self-harm

== ENCOUNTER 2017-04-29 23:10 | Emergency (ER) | payer MEDICAID ==
[2017-04-30 00:08] LABS: RBC URINE 1 /hpf (0-3); URINE BILIRUBIN NEGATIVE (NEGATIVE); URINE BLOOD NEGATIVE (NEGATIVE); URINE COLOR Yellow (YELLOW); URINE GLUCOSE (UA) NORMAL (Normal); URINE KETONE 1+ mg/dL (NEGATIVE); URINE LEUKOCYTE ESTERASE NEG Leu/uL (Negative); URINE PROTEIN NEGATIVE (NEGATIVE); URINE UROBILINOGEN NORMAL mg/dL (0.2-1.0); WBC URINE 1 /hpf (0-5)
[2017-04-30 00:18] LABS: BASO # 0.1 K/uL (0.0-0.2); BASO % 0.8 % (0.0-2.0); EOS # 0.1 K/uL (0.0-0.7); HEMATOCRIT 46.7 % (35.0-51.0); LYMPH # 1.5 K/uL (1.0-4.3); LYMPH % 24.2 % (20.0-40.0); MEAN CELL VOLUME 90.7 fL (80.0-94.0); MEAN CORPUSCULAR HEMOGLOBIN 30.5 pg (27.0-31.0); MEAN CORPUSCULAR HGB CONC 33.6 g/dL (33.0-37.0); MEAN PLATELET VOLUME 8.5 fL (7.2-11.7); MONO # 0.6 K/uL (0.0-0.8); MONO % 10.4 % (0.0-10.0); NRBC % 0.1 % (0.0-2.0); RED CELL DISTRIBUTION WIDTH 14.1 % (11.5-14.5); WHITE BLOOD COUNT 6.1 K/uL (4.8-10.8)
[2017-04-30 00:37] LABS: ALB/GLOB RATIO 1.3 (1.0-2.1); ALCOHOL SERUM < 10 mg/dl (0-10); ALKALINE PHOSPHATASE 55 U/L (38-126); ALT/SGPT 62 U/L (21-72); AST/SGOT 36 U/L (17-59); BILIRUBIN,TOTAL 1.1 mg/dL (0.2-1.3); BLOOD UREA NITROGEN 16 mg/dL (9-20); CALCIUM 8.6 mg/dl (8.6-10.4); CARBON DIOXIDE 29 mmol/L (22-30); CHLORIDE 103 mmol/L (98-107); GFR AFRICAN-AMERICAN > 60; GLUCOSE,RANDOM 78 mg/dL (75-110); POTASSIUM 3.8 mmol/L (3.6-5.2); SODIUM 142 mmol/L (132-148)
--- NOTE | 2017-04-30 02:10 | C.PDOC ---
History Of Present Illness 26 year old male presents to the ER with a complaint of feeling depressed. Denies suicidal or homicidal ideation. Patient was seen in the ER in March where he was admitted for depression and IV drug use and discharged to [facility], a psychiatric drug rehab facility. Patient states he signed out AMA from a voluntary psychiatric drug rehab facility earlier today because he felt he did not like the way it was being operated. Patient states he felt his depression was greater than usual today and his mind was all over the place which attributed to him signing out AMA. Patient was in the facility for IV heroin abuse but states he has not used since January when he attempted suicide by overdose. Chief Complaint (Nursing): Psychiatric Evaluation History Per: Patient History/Exam Limitations: no limitations Onset/Duration Of Symptoms: Hrs Current Symptoms Are (Timing): Still Present Suicide/Self Injury Attempted (Context): None Modifying Factor(s): None Associated Symptoms: Depression. denies: Suicidal Thoughts, Suicidal Plan Involuntary Hold By: None Recent travel outside of the [place]: No Past Medical History Reviewed: Historical Data, Nursing Documentation, Vital Signs Vital Signs: Last Vital Signs Temp 98.6 F 04/30/17 02:31 Pulse 104 H 04/30/17 02:31 Resp 16 04/30/17 02:31 BP 116/69 04/30/17 02:31 Pulse Ox 96 04/30/17 02:31 - Medical History PMH: Depression Surgical History: No Surg Hx - [facility] GROUP PSYCHOTHERAPY (03/26/17) INDIVIDUAL PSYCHOTHERAPY, COGNITIVE-BEHAVIORAL (03/26/17) INDIVIDUAL PSYCHOTHERAPY, SUPPORTIVE (03/26/17) Family History: States: Unknown Family Hx - Social History Hx Alcohol Use: Yes (sober 1 month) Hx Substance Use: Yes - Immunization History Hx Tetanus Toxoid Vaccination: No Hx Influenza Vaccination: No Hx Pneumococcal Vaccination: No Review Of Systems Constitutional: Negative for: Fever, Chills Cardiovascular: Negative for: Chest Pain, Palpitations Respiratory: Negative for: Shortness of Breath Gastrointestinal: Negative for: Nausea, Abdominal Pain, Diarrhea Psych: Positive for: Depression. Negative for: Suicidal ideation Physical Exam - Physical Exam Appears: Non-toxic, No Acute Distress Skin: Normal Color, Warm, Dry Head: Atraumatic, Normacephalic Eye(s): bilateral: Normal Inspection Oral Mucosa: Moist Chest: Symmetrical, No Tenderness Cardiovascular: Rhythm Regular Respiratory: Normal Breath Sounds, No Rales, No Rhonchi, No Wheezing Gastrointestinal/Abdominal: Soft, No Tenderness Neurological/Psych: Oriented x3, Normal Speech ED Course And Treatment - Laboratory Results Result Diagrams: 04/29/17 23:55 04/29/17 23:55 O2 Sat by Pulse Oximetry: 98 (Room air) Pulse Ox Interpretation: Normal Medical Decision Making Medical Decision Making: Plan: * Blood work * Urinalysis * Crisis eval Disposition - Disposition Disposition Time: 06:52 Condition: GOOD Forms: [facility] (Kyrgyz) - Clinical Impression Clinical Impression: Moderate major depression, single episode - Scribe Statement The provider has reviewed the documentation as recorded by the Scribe Rl Weeks All medical record entries made by the Scribe were at my direction and personally dictated by me. I have reviewed the chart and agree that the record accurately reflects my personal performance of the history, physical exam, medical decision making, and the department course for this patient. I have also personally directed, reviewed, and agree with the discharge instructions and disposition. Physician Patient Turnover Patient Signed Over To: Myra Godfrey Handoff Comments: psych eval
[2017-04-30 10:11] VITALS: BP 122/66; PULSE 88; RESP 18; TEMP 98.6; O2SAT 98
== END 2017-04-30 10:11 | disposition home or self-care (01) ==
LOC: C.ER 23:10
DX: F32.1 Major depressive disorder, single episode, moderate (principal)